=== PATIENT | female | born 1995 | race African-American/Black ===

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

== ENCOUNTER 2020-05-28 06:04 | Inpatient (IN) ==
[2020-05-28] MEDS ORDERED: ONDANSETRON 4 MG/2 ML VIAL IV PRN (06:23)
[2020-05-28] MEDS ORDERED: OXYTOCIN/LR 20 UNIT/1,000 ML BAG IV SCH (06:30)
[2020-05-28] MEDS ORDERED: LACTATED RINGERS 1,000 ML IV SCH (06:30)
[2020-05-28 06:47] LABS: Basophils % 0.1 % (0.0-0.8); Eosinophils # 0.1 10*3/uL (0.0-0.87); Eosinophils % 1.2 % (0.00-10.9); Hematocrit 34.2 VOL% (35.7-47.0); Hemoglobin 10.7 GM/DL (12.0-16.0); Immature Granulocytes % 0.8 %; Immature Granulocytes Absolute 0.07 #; Lymphocytes # 2.3 10*3/uL (1.4-4.0); Lymphocytes % 25.6 % (21.3-54.2); Mean Corpuscular HGB Conc 31.3 GM/DL (32-36); Mean Corpuscular Volume 108.2 FL (87-102); Mean Platelet Volume 11.3 FL (9.6-12.0); Monocytes % 6.5 % (1.7-12.7); Neutrophils % 65.8 % (38.7-73.9); Platelet Count 148 T/CUMM (130-400); Red Blood Count 3.16 MC/CUMM (3.8-5.5); Red Cell Distribution Width 13.9 % (9.3-17.3)
[2020-05-28] MEDS ORDERED: TRANEXAMIC ACID 1,000 MG/10 ML VIAL ONE (11:11)
[2020-05-28] MEDS ORDERED: miSOPROStoL 200 MCG TABLET ONE (11:11)
[2020-05-28] MEDS ORDERED: CARBOPROST TROMETHAMINE 250 MCG/ML AMP IM ONE (11:12)
[2020-05-28] MEDS ORDERED: OXYTOCIN/LR 0 UNIT/0 ML BAG IV ONE (11:12)
[2020-05-28] MEDS ORDERED: METHYLERGONOVINE 0.2 MG/1 ML AMP ONE (11:12)
[2020-05-28] MEDS ORDERED: MEPERIDINE 50 MG/1 ML VIAL IV PRN (13:38)
[2020-05-28 14:27] LABS: Cord Venous Blood HCO3 20.4 MMOL/L; Cord Venous Blood PCO2 48.8 MMHG; Cord Venous Blood PO2 25.1
[2020-05-28] MEDS ORDERED: RHO(D) IMMUNE GLOBULIN 300 MCG SYRINGE IM ONE (16:51)
[2020-05-28] MEDS ORDERED: LANOLIN 50% CREAM 0.3 OZ TUBE TOP PRN (16:51)
[2020-05-28] MEDS ORDERED: oxyCODONE/ACETAMINOPHEN 5-325 MG TABLET PO PRN (16:51)
[2020-05-28] MEDS ORDERED: ACETAMINOPHEN 325 MG TABLET PO PRN (16:51)
[2020-05-28] MEDS ORDERED: HYDROCORTISONE 2.5% RECTAL CREAM 30 GM TUBE TOP PRN (16:51)
[2020-05-28] MEDS ORDERED: BENZOCAINE 20%/MENTHOL 0.5% SPRAY 56 GM CAN TOP PRN (16:51)
[2020-05-28] MEDS ORDERED: DIPH/TET/ACEL PERT BOOSTER VACCINE 0.5 ML VIAL IM ONE (16:51)
[2020-05-28] MEDS ORDERED: BISACODYL 10 MG SUPP RECTAL PRN (16:51)
[2020-05-28] MEDS ORDERED: OXYTOCIN/LR 20 UNIT/1,000 ML BAG IV ONE (16:51)
[2020-05-28] MEDS ORDERED: MEASLES/MUMPS/RUBELLA VACCINE 0.5 ML VIAL SUBCUT ONE (16:51)
[2020-05-28] MEDS ORDERED: WITCH HAZEL PADS 100/JAR TOP PRN (16:51)
[2020-05-28] MEDS: IBUPROFEN 800 MG TABLET PO PRN (18:46)
[2020-05-28] MEDS: DOCUSATE SODIUM 100 MG CAPSULE PO SCH ×2 (18:47→21:49)
[2020-05-28] MEDS: oxyCODONE/ACETAMINOPHEN 5-325 MG TABLET PO PRN (18:47)
[2020-05-29] MEDS: IBUPROFEN 800 MG TABLET PO PRN ×2 (03:37→16:31)
[2020-05-29] MEDS: oxyCODONE/ACETAMINOPHEN 5-325 MG TABLET PO PRN ×2 (03:38→16:30)
[2020-05-29 07:27] LABS: Basophils % 0.1 % (0.0-0.8); Eosinophils # 0.1 10*3/uL (0.0-0.87); Hematocrit 31.9 VOL% (35.7-47.0); Hemoglobin 9.9 GM/DL (12.0-16.0); Immature Granulocytes % 0.6 %; Immature Granulocytes Absolute 0.06 #; Lymphocytes # 2.2 10*3/uL (1.4-4.0); Lymphocytes % 22.3 % (21.3-54.2); Mean Corpuscular Volume 107.4 FL (87-102); Mean Platelet Volume 11.3 FL (9.6-12.0); Platelet Count 142 T/CUMM (130-400); Red Blood Count 2.97 MC/CUMM (3.8-5.5); Red Cell Distribution Width 13.6 % (9.3-17.3); White Blood Count 9.7 T/CUMM (4-12)
[2020-05-29] MEDS: DOCUSATE SODIUM 100 MG CAPSULE PO SCH ×2 (09:14→21:21)
[2020-05-30] MEDS: IBUPROFEN 800 MG TABLET PO PRN (03:57)
[2020-05-30 07:17] VITALS: BP 98/52
[2020-05-30] MEDS: DOCUSATE SODIUM 100 MG CAPSULE PO SCH (10:56)
== END 2020-05-30 11:25 | disposition home or self-care (01) | DRG 807 ==
LOC: N.LD 06:04 → N.OB 16:50
PROVIDERS: ADMIT Obstetrics & Gynecology; ATTEND Obstetrics & Gynecology